=== PATIENT | male | born 1995 | race Caucasian/White ===

== ENCOUNTER 2020-02-08 04:16 | Emergency (ER) | payer OTHER ==
--- NOTE | 2020-02-08 05:41 | ER Document Report ---
ED Medical Screen (RME) - General Chief Complaint: Lip Injury Stated Complaint: LIP LACERATION Time Seen by Provider: 02/08/20 05:38 Notes: Patient is a 24-year-old male who presents to the emergency department with a chief complaint of a laceration to the left side of his mouth. Patient states that he had been drinking tonight. He does not remember what exactly happened. He thinks he might of went outside and hit his face on a step. Exam: Patient appears intoxicated. Laceration noted to the left lateral mouth. I have greeted and performed a rapid initial assessment of this patient. A comprehensive ED assessment and evaluation of the patient, analysis of test results and completion of medical decision making process will be conducted by an additional ED providers. - Related Data Allergies/Adverse Reactions: No Known Allergies Allergy (Unverified 02/08/20 05:21) Physical Exam - Vital signs Vitals: Pulse Resp BP Pulse Ox 120 H 16 168/98 H 98 02/08/20 04:29 02/08/20 04:29 02/08/20 04:29 02/08/20 04:29 Course - Vital Signs Vital signs: Temp Pulse Resp BP Pulse Ox 120 H 16 168/98 H 98 02/08/20 04:29 02/08/20 04:29 02/08/20 04:29 02/08/20 04:29
--- NOTE | 2020-02-08 06:37 | RADIOLOGY REPORT (SQ) ---
EXAM DESCRIPTION: CT HEAD WITHOUT IV CONTRAST COMPLETED DATE/TME: 02/08/2020 05:39 CLINICAL HISTORY: 24 years, Male, fall; ETOH; lip laceration COMPARISON: None. TECHNIQUE: Axial CT images of the brain were obtained without contrast. Sagittal and coronal reformats were performed. [facility] 1203 Images stored on PACS. All CT scanners at this facility use dose modulation, iterative reconstruction, and/or weight based dosing when appropriate to reduce radiation dose to as low as reasonably achievable (ALARA). [facility]: Dose Right [facility]: CareDose [facility]: Dose Right [facility]: Teradose 4D [facility]: Arkadium LIMITATIONS: None. FINDINGS: There is no acute cortical infarct, hemorrhage, mass, edema, hydrocephalus, or extra-axial fluid collection. A cavum septum pellucidum et vergae is noted. The causey-white matter differentiation is preserved. The paranasal sinuses and mastoid air cells are clear. There is no acute fracture. There is a small laceration along the upper left lip. No radiopaque foreign body. IMPRESSION: No acute intracranial abnormality. TECHNICAL DOCUMENTATION: Quality ID # [id number]: Final reports with documentation of one or more dose reduction techniques (e.g., Automated exposure control, adjustment of the mA and/or kV according to patient size, use of iterative reconstruction technique) copyright 2011 [employer]- All Rights Reserved
[2020-02-08] MEDS ORDERED: LIDOCAINE 1%/EPINEPHRINE INJ 20 ML VIAL INJ ONE (07:09)
[2020-02-08] MEDS ORDERED: DIPH/PERTUSS(ACELL)/TETANUS VAC/PF 0.5 ML SYR (>=10YO) IM ONE (07:11)
--- NOTE | 2020-02-08 07:19 | ER Document Report ---
ED General - General Chief Complaint: Laceration Stated Complaint: LIP LACERATION Time Seen by Provider: 02/08/20 05:38 - HPI Notes: Chief complaint: Facial laceration History of present illness: Generally healthy 24-year-old male who is a heavy drinker states that he had consumed approximately 10 beers last night. He does not remember the exact circumstances but said that he was outside of his house and fell against a railing in the porch area sustaining a laceration of the left side of his face. Unsure if he lost consciousness. He complains of soreness of facial area but has no other specific complaints this time. He is not experiencing nausea or vomiting. He denies neck pain. Patient says he has been thinking about "cutting down" on his alcohol but indicates that he has never sought professional help for drinking. He denies any suicidal homicidal ideation. He denies any auditory or visual hallucinations. He denies any intent to harm himself or others. Last tetanus booster is unknown. No known allergies. No current medications. Patient is accompanied here today by his [id number] who corroborates his history. - Related Data Allergies/Adverse Reactions: No Known Allergies Allergy (Unverified 02/08/20 05:21) Past Medical History - General Information source: Patient, Relative - Social History Smoking Status: Former Smoker Frequency of alcohol use: Social Drug Abuse: None Lives with: Family Family History: Reviewed & Not Pertinent Patient has homicidal ideation: No - Medical History Medical History: Negative Past Surgical History: Reports: Hx Appendectomy Review of Systems - Review of Systems Notes: Constitutional: Negative for fever. HENT: Negative for sore throat. Eyes: Negative for visual changes. Cardiovascular: Negative for chest pain. Respiratory: Negative for shortness of breath. Gastrointestinal: Negative for abdominal pain, vomiting or diarrhea. Genitourinary: Negative for dysuria. Musculoskeletal: Negative for back pain. Skin: As per HPI. Neurological: Negative for headaches, weakness or numbness. 10 point ROS negative except as marked above and in HPI. Physical Exam - Vital signs Vitals: Pulse Resp BP Pulse Ox 120 H 16 168/98 H 98 02/08/20 04:29 02/08/20 04:29 02/08/20 04:29 02/08/20 04:29 - Notes Notes: GENERAL: Well-developed well-nourished male approximately stated age appearing in no acute distress with strong odor of old alcohol present. SKIN: Good turgor. Keloid scar over right upper anterior chest area related to old injury. HEAD: Normocephalic. Large laceration at the corner of the mouth on the left side. EYES: PERRLA. EOMI. Conjunctivae and sclerae clear. EARS: CANALS AND TMS CLEAR. NOSE: CLEAR. MOUTH: Through and through laceration at the corner of the mouth on the left side which measures approximately 4.0 cm in total length and extends through the vermilion border of the lip. No active bleeding from this currently. Moist mucosa. Good dentition with no obvious dental trauma. Patient is able to open and close the jaw without difficulty. There is no malocclusion. There is no tenderness over the TMJ on either side. No stridor or edema. No drooling. NECK: Supple. No masses or thyromegaly. No adenopathy. Carotids 2+ without bruits. No JVD. BACK: Symmetrical without tenderness. CHEST: Respirations unlabored. Breath sounds clear and symmetrical. HEART: Regular rhythm. No murmur gallop or rub. ABDOMEN: Soft nontender without masses, organomegaly or rebound. Bowel sounds normally active. No bruits. GENITALIA: Deferred. EXTREMITIES: No edema. No calf tenderness. Cap refill less than 1.5 seconds. Dorsalis pedis and posterior tibial pulses 3+ and symmetrical. NEUROLOGICAL: GCS 15. Alert and oriented x3. Normal gait. Minimally slurred speech. Cranial nerves II through XII intact. Sensorimotor and cerebellar normal. Normal tone. PSYCHIATRIC: Appropriate affect. Course - Re-evaluation Re-evalutation: 02/08/20 10:[address] UDS ngative. EtOH 80. Complex repair face/lip/oral lac. Stable for d/c. 02/08/20 10:04 - Vital Signs Vital signs: Temp Pulse Resp BP Pulse Ox 120 H 16 168/98 H 98 02/08/20 04:29 02/08/20 04:29 02/08/20 04:29 02/08/20 04:29 Procedures - Laceration/Wound Repair Left Face Time completed: 10:45 - Complex thru/thru lac lip & face Wound length (cm): 7.5 Wound's Depth, Shape: Irregular, Stellate, Other - face, lip, muscularis, oral mucosa Laceration pre-procedure: Sterile PPE donned, Chloraprep applied, Sterile drapes applied, Shur-Clens applied Anesthetic type: 1% Lidocaine w/epi Volume Anesthetic (mLs): 15 Wound explored: Clean Irrigated w/ Saline (mLs): 1,000 - NS Wound Repaired With: Sutures Suture Size/Type: Vicryl, 4:0 Number of Sutures: 14 Layer Closure?: Yes - oral mucosa, muscularis, lip, faical skin Deep Layer Suture Size/Type: 4:0, Other - vicryl Number Deep Layer Sutures: 8 Post-procedure wound care: Sterile dressing applied, Other - Bacitracin ointment. Ice pack Complications: No Notes: 02/08/20 10:01 Complex closure. Discharge - Discharge Clinical Impression: Complex facial laceration, Fall Alcohol intoxication Qualifiers: Complication of substance-induced condition: uncomplicated Qualified Code(s): F10.920 - Alcohol use, unspecified with intoxication, uncomplicated Condition: Stable Disposition: HOME, SELF-CARE Additional Instructions: Facial Laceration A laceration on the face usually heals quickly. Our treatment goal will be to avoid an unsightly scar or stitch-king. Your cut has been closed with the best techniques to avoid scarring, but a great deal depends on how well you protect the laceration -- and on your inherited tendency to scar. As facial cuts are usually caused by a blunt injury, it's usually best to rest for a day to avoid swelling. Do not allow any bumping or rubbing of the area. Keep the stitches dry. Follow the treatment plan the doctor has discussed with you and DO NOT DELAY getting the stitches out. Once stitches are removed, continue to protect the area from trauma and sunlight (use a sunscreen) for about six months. If any signs of infection occur (swelling, redness, increasing tenderness, red streaks, tender lumps in the neck or near the ear on the side of the laceration, or fever), see the doctor immediately. Liquid/soft diet only. Ice packs as needed facial area for swelling and keep the area elevated as instructed. Apply Neosporin ointment to the area 3 times a day. Take prescribed antibiotic. You may use ibuprofen or Tylenol initially for pain and for pain that is uncontrolled with these you may take tramadol supplementally. Do not drink beer or wine or whiskey. Do not drive an automobile within the next 48 hours. Rinse your mouth with warm salt water 3 times daily. Follow-up with your primary care doctor within the next 3 to 5 days for reevaluation. Prescriptions: Tramadol HCl [Ultram 50 mg Tablet] 50 mg PO Q4HP PRN #12 tab PRN Reason: Amoxicillin 1 tab PO TID #30 tab Forms: Elevated Blood Pressure
[2020-02-08 08:39] LABS: URINE AMPHETAMINES SCREEN NEGATIVE; URINE BARBITURATES SCREEN NEGATIVE; URINE BENZODIAZEPINES SCREEN NEGATIVE; URINE COCAINE SCREEN NEGATIVE; URINE MARIJUANA (THC) SCREEN NEGATIVE; URINE METHADONE SCREEN NEGATIVE; URINE PHENCYCLIDINE SCREEN NEGATIVE
[2020-02-08] MEDS ORDERED: ACETAMINOPHEN 325 MG TABLET PO ONE (08:41)
[2020-02-08 10:28] VITALS: BP 137/73
== END 2020-02-08 10:58 | disposition home or self-care (01) ==
LOC: ER 04:16
DX: S01.511A Laceration without foreign body of lip, initial encounter (principal); F10.920 Alcohol use, unspecified with intoxication, uncomplicated; W18.30XA Fall on same level, unspecified, initial encounter; Y92.009 Unspecified place in unspecified non-institutional (private) residence as the place of occurrence of the external cause; Z23 Encounter for immunization
CPT/HCPCS: 99283; 90471; 36415; 80307 ×2; 70450; 90715; 40654; J3490